=== PATIENT | male | born 1980 | race Two or more races ===

== ENCOUNTER 2020-03-13 16:55 | Outpatient (CLI) | payer OTHER | END 2020-03-13 17:20 | disposition home or self-care (01) | LOC: OFIC 805 16:55 | PROVIDERS: ATTEND Otolaryngology Otology & Neurotology | DX: J34.3 Hypertrophy of nasal turbinates (principal); J31.0 Chronic rhinitis; R09.81 Nasal congestion; G47.33 Obstructive sleep apnea (adult) (pediatric) ==